=== PATIENT | female | born 1985 | race Caucasian/White ===

== ENCOUNTER 2016-05-20 15:06 | Emergency (ER) | payer BC, MEDICAID, OTHER ==
[~2016-05-20] VITALS: Ht 154.9 cm; Wt 67.0 kg
[2016-05-20 15:13] VITALS: Ht 154.9 cm; Wt 67.0 kg
[2016-05-20 19:46] LABS: URINE BLOOD (Dip) POC Negative (NEGATIVE)
[2016-05-20 20:19] LABS: BASOPHIL # 0.2 10^3/ul (0.0-0.1); BASOPHILS % 1.9 % (0.0-2.0); EOSINOPHILS # 0.1 10^3/ul (0.0-0.5); EOSINOPHILS % 0.4 % (0.0-7.0); HEMATOCRIT 40.3 % (37.0-47.0); HEMOGLOBIN 13.6 g/dl (12.0-16.0); LYMPHOCYTES # 2.6 10^3/ul (0.8-2.9); LYMPHOCYTES % 21.4 % (15.0-51.0); MEAN CORPUSCULAR HEMOGLOBIN 27.8 pg (29.0-33.0); MEAN CORPUSCULAR HGB CONC 33.8 g/dl (32.0-37.0); MEAN CORPUSCULAR VOLUME 82.3 fl (82.0-101.0); MEAN PLATELET VOLUME 8.2 fl (7.4-10.4); MONOCYTE # 0.8 10^3/ul (0.3-0.9); MONOCYTES % 6.3 % (0.0-11.0); NEUTROPHIL # 8.4 10^3/ul (1.6-7.5); PLATELET COUNT 282 10^3/UL (140-440); RED BLOOD COUNT 4.89 10^6/ul (4.20-5.40); RED CELL DISTRIBUTION WIDTH 15.5 % (11.5-14.5)
--- NOTE | 2016-05-20 20:48 | RADRPT ---
PROCEDURE: US OB. CLINICAL INDICATION: . Evaluate size and dates. TECHNIQUE: Transabdominal imaging of the pelvis was performed. Images are reviewed on a high-reso Klash PACS workstation. COMPARISON: None available FINDINGS: Single intrauterine gestation is identified. heart rate is 162 bpm. [place]-rump length = 6.64 cm. Gestational age is 13 weeks 0 days and MARCELO is 11/25/2016 by ultrasound criteria. Gestational age is 13 weeks 5 days and MARCELO is 11/20/2016 by LMP. Ovaries are not visualized. No adnexal mass or pelvic free fluid is identified. IMPRESSION: 1. Single live intrauterine with an estimated gestational age of 13 weeks 0 days by ultra sound criteria, as above. RPTAT: HDWR .Jimmy Chaudhry MD, Date Time Electronically viewed and signed by .Jimmy Chaudhry MD, on 05/20/2016 20:47 .R/
[2016-05-20 20:50] LABS: CONDITION 1
[2016-05-20 20:51] LABS: LH ANALYZER COMMENTS 1
--- NOTE | 2016-05-20 21:54 | ERD ---
ER Documentation Chief Complaint Date/Time DATE: 05/20/16 TIME: 21:48 Chief Complaint SENT BY CLINIC Pt 13 WEEKS ,NO HEART TONE HPI Patient is a 30-year-old female, , approximately 13 weeks who presents to the emergency department with concerns of no heart tones. Patient states that she saw her NUCLEAR POWERPLANT SUPERVISOR today who was unable to detect heart tones using handheld doppler device. Patient denies any abdominal pain, pelvic pain, vaginal bleeding, vaginal discharge, abdominal cramping, fever, chills, nausea, vomiting. Patient reports normal thus far. Patient is taking vitamins. ROS All systems reviewed and are negative except as per history of present illness. Allergies Allergies: Coded Allergies: No Known Allergy (Verified Allergy, Unknown, 03/02/08) PMhx/Soc Medical and Surgical Hx: pt denies Medical Hx, pt denies Surgical Hx Hx Alcohol Use: No Hx Substance Use: No Hx Tobacco Use: No Smoking Status: Never smoker Physical Exam Vitals Vital Signs Date Time Temp Pulse Resp B/P Pulse Ox O2 Delivery O2 Flow Rate FiO2 05/20/16 22:20 98.6 88 20 Room Air 05/20/16 15:13 98.6 84 18 119/68 98 Physical Exam GENERAL: Well-developed, well-nourished male. Appears in no acute distress. HEAD: Normocephalic, atraumatic. EYES: Pupils are equally reactive bilaterally. EOMs grossly intact. No conjunctival erythema. ENT: Moist mucous membranes. No uvula deviation. No kissing tonsils. NECK: Supple. No lymphadenopathy or thyromegaly. No meningismus. LUNG: Clear to auscultation bilaterally. No rhonchi, wheezing, rales or coarse breath sounds. HEART: Regular rate and rhythm. No murmurs, rubs or gallops. ABDOMEN: No scars, ecchymosis or rashes noted. Soft, nontender, and nondistended. Positive bowel sounds in all four quadrants. No rebound tenderness , no guarding. (-) McBurneys point tenderness. No CVA tenderness. BACK: No midline tenderness. EXTREMITIES: Equal pulses bilaterally. No peripheral clubbing, cyanosis or edema. No unilateral leg swelling. NEUROLOGIC: Alert and oriented. Moving all four extremities without any difficulty. Normal speech. Steady gait. SKIN: Normal color. Warm and dry. No rashes or lesions. Result Diagram: 05/20/161954 Results 24 hrs Laboratory Tests Test 05/20/16 19:45 05/20/16 19:46 05/20/16 19:55 Urine Bacteria FEW Urine Bilirubin NEGATIVE Urine Clarity CLEAR Urine Color LT. YELLOW Urine Glucose NEGATIVE% Urine Hemoglobin NEGATIVE Urine Ketones 40 Urine Leukocyte Esterase TRACE Urine Microscopic RBC 0-2/HPF Urine Microscopic WBC 0-2/HPF Urine Nitrite NEGATIVE Urine Specific [place] 1.015 Urine Squamous Epithelial Cells FEW Urine Total Protein NEGATIVE Urine Urobilinogen 0.2 E.U./dL Urine pH 6.5 Bedside Urine Blood Negative Bedside Urine Glucose (UA) Negative Bedside Urine Ketones (LAB) 2+ Bedside Urine Leukocyte Esterase (L Negative Bedside Urine Nitrite (LAB) Negative Bedside Urine Protein (LAB) Negative Bedside Urine pH (LAB) 6.5 Basophils # 0.210^3/ul Basophils % 1.9% Beta HCG, Quantitative 63870.0mIU/ml Blood Morphology Comment Eosinophils # 0.110^3/ul Eosinophils % 0.4% Hematocrit 40.3% Hemoglobin 13.6g/dl Lymphocytes # 2.610^3/ul Lymphocytes % 21.4% Mean Corpuscular Hemoglobin 27.8pg Mean Corpuscular Hemoglobin Concent 33.8g/dl Mean Corpuscular Volume 82.3fl Mean Platelet Volume 8.2fl Monocytes # 0.810^3/ul Monocytes % 6.3% Neutrophils # 8.410^3/ul Neutrophils % 70.0% Nucleated Red Blood Cells # 0.010^3/ul Nucleated Red Blood Cells % 0.0/100WBC Platelet Count 72860^3/UL Red Blood Count 4.8910^6/ul Red Cell Distribution Width 15.5% White Blood Count 12.010^3/ul Procedures/MDM ED COURSE: The patient was stable throughout ED course. I kept the patient and/or family informed of laboratory and diagnostic imaging results throughout the ED course. DIAGNOSTIC IMAGING: Read by radiologist. DIAGNOSTIC IMAGING REPORT Patient: MIKHAIL MCKNIGHT : 1985 Age: 30 Sex: F MR #: [id number] DOS: 05/20/161948 Ordering MD: FELICIANO HAM PA-C Location: [facility] Room/Bed: PROCEDURE: US OB. CLINICAL INDICATION: . Evaluate size and dates. TECHNIQUE: Transabdominal imaging of the pelvis was performed. Images are reviewed on a high-resolution PACS workstation. COMPARISON: None available FINDINGS: Single intrauterine gestation is identified. heart rate is 162 bpm. [place]-rump length = 6.64 cm. Gestational age is 13 weeks 0 days and MARCELO is 11/25/2016 by ultrasound criteria. Gestational age is 13 weeks 5 days and MARCELO is 11/20/2016 by LMP. Ovaries are not visualized. No adnexal mass or pelvic free fluid is identified. IMPRESSION: 1. Single live intrauterine with an estimated gestational age of 13 weeks 0 days by ultrasound criteria, as above. RPTAT: HDWR .Jimmy Chaudhry MD, Date Time Electronically viewed and signed by .Jimmy Chaudhry MD, MD on 05/20/2016 20: 47 .R/ CC: FELICIANO HAM PA-C MEDICAL DECISION MAKING: This is a 30-year-old t female who presents with concerns of no heart tones. Patient states that she saw her NUCLEAR POWERPLANT SUPERVISOR today who was unable to detect heart tones using hand-held doppler device. Vital signs were reviewed. Patient was afebrile. Patient was hemodynamically stable. [place] [address]. Rh factor was positive. No Rhogam was given. CBC showed no evidence of systemic infection or severe anemia. Pelvic US showed Single live intrauterine with an estimated gestational age of 13 weeks 0 days by ultrasound criteria, as above. Given these findings, the patients presentation is most consistent with normal . I have a much lower clinical concern for demise, ectopic , molar , spontaneous , incomplete , missed , placental abruption , placental previa, vasa previa, uterine rupture, anembyronic . DISCHARGE: At this time, patient is stable for discharge and outpatient management. I have instructed the patient to follow-up with her OBGYN in 1-2 days. I have instructed the patient to promptly return to the ER at any time for any new or worsening symptoms including increased pain, nausea, vomiting, continued bleeding, weakness, syncope or fever. The patient and/or family expressed understanding of and agreement with this plan. All questions were answered. Home care instructions were provided. Departure Diagnosis: Primary Impression: Weeks of gestation: 13 weeks Qualified Code: Z3A.13 - 13 weeks gestation of Condition: Stable Referrals: [facility] YOU HAVE RECEIVED A MEDICAL SCREENING EXAM AND THE RESULTS INDICATE THAT YOU DO NOT HAVE A CONDITION THAT REQUIRES URGENT TREATMENT IN THE EMERGENCY DEPARTMENT. FURTHER EVALUATION AND TREATMENT OF YOUR CONDITION CAN WAIT UNTIL YOU ARE SEEN IN YOUR DOCTORS OFFICE WITHIN THE NEXT 1-2 DAYS. IT IS YOUR RESPONSIBILITY TO MAKE AN APPOINTMENT FOR FOLOW-UP CARE. IF YOU HAVE A PRIMARY DOCTOR --you should call your primary doctor and schedule an appointment IF YOU DO NOT HAVE A PRIMARY DOCTOR YOU CAN CALL OUR PHYSICIAN REFERRAL HOTLINE AT IF YOU CAN NOT AFFORD TO SEE A PHYSICIAN YOU CAN CHOSE FROM THE FOLLOWING [facility] [address] [facility]. [facility] [address] [facility]. [facility] [address] [facility]. [facility] [address] [facility] [address] [facility]. [facility]. [address] [facility]. [facility] YOU HAVE RECEIVED A MEDICAL SCREENING EXAM AND THE RESULTS INDICATE THAT YOU DO NOT HAVE A CONDITION THAT REQUIRES URGENT TREATMENT IN THE EMERGENCY DEPARTMENT. FURTHER EVALUATION AND TREATMENT OF YOUR CONDITION CAN WAIT UNTIL YOU ARE SEEN IN YOUR DOCTORS OFFICE WITHIN THE NEXT 1-2 DAYS. IT IS YOUR RESPONSIBILITY TO MAKE AN APPOINTMENT FOR FOLOW-UP CARE. IF YOU HAVE A PRIMARY DOCTOR --you should call your primary doctor and schedule and appointment IF YOU DO NOT HAVE A PRIMARY DOCTOR YOU CAN CALL OUR PHYSICIAN REFERRAL HOTLINE AT . IF YOU CAN NOT AFFORD TO SEE A PHYSICIAN YOU CAN CHOSE FROM THE FOLLOWING [facility] INSTITUTIONS: [facility] [address] [place] [address] [facility] [address] [place] [address] [facility] [address] [place] [address] [employer]UCLE[employer]OWERPL[employer] [address] [address] [facility] [address] [place] [address] OFFICE FAX , [facility] [address] [place] [address] [address] VELAZQUEZ, [place] [address] [place] [address] [address] WISEMAN, [facility] [address] [facility], [address], [facility] [address] [address] MARTINEZ, [place] [address] [place] [address] [place] [address] [place] [address] [address] [facility] [address] - [address], [facility] [address] [address] RIOS, [facility] [address] [facility]. [address], [facility] [address] [address] LINARES, [facility] [address] [place], [place] [id number] Additional Instructions: Call your primary care doctor/OBGYN TOMORROW for an appointment during the next 1-2 days.See the doctor sooner or return here if your condition worsens before your appointment time. FELICIANO HAM PA-C May 20, 2016 21:54
[2016-05-20 22:09] LABS: ADD UMIC YES; URINE BILIRUBIN (Dip) NEGATIVE (NEGATIVE); URINE BLOOD (Dip) NEGATIVE (NEGATIVE); URINE COLOR LT. YELLOW (YELLOW); URINE GLUCOSE (Dip) NEGATIVE (NEGATIVE); URINE KETONES (Dip) 40 (NEGATIVE); URINE LEUKOCYTE ESTERASE (Dip) TRACE (NEGATIVE); URINE NITRITE (Dip) NEGATIVE (NEGATIVE); URINE TOTAL PROTEIN (Dip) NEGATIVE (NEGATIVE); URINE UROBILINOGEN (Dip) 0.2 E.U./dL (0.1-1.0)
[2016-05-20 22:20] VITALS: PULSE 88; RESP 20; TEMP 98.6
[2016-05-20 22:27] LABS: BACTERIA,URINE FEW; SQUAMOUS EPITHELIAL CELL,UR FEW; URINE RBCS 0-2 /HPF (0)
== END 2016-05-20 22:12 | disposition home or self-care (01) ==
LOC: FTE 15:06
DX: O99.89 Other specified diseases and conditions complicating pregnancy, childbirth and the puerperium (principal); R10.2 Pelvic and perineal pain; Z3A.13 13 weeks gestation of pregnancy
CPT/HCPCS: 36415; 76801; 81001; 84702; 85025; 86900; 86901; Z7502; 81003

== ENCOUNTER 2016-08-08 15:54 | Emergency (ER) | payer OTHER ==
[~2016-08-08] VITALS: Ht 160 cm; Wt 69.5 kg
[2016-08-08 16:11] VITALS: Ht 160 cm; Wt 69.5 kg
[2016-08-08] MEDS ORDERED: ACETAMINOPHEN 500 MG TAB PO STA (17:17)
[2016-08-08] MEDS ORDERED: ACET500C5 PO (17:19)
--- NOTE | 2016-08-08 17:22 | ERD ---
ER Documentation Chief Complaint Date/Time DATE: 08/08/16 TIME: 17:21 Chief Complaint CP X3 DAYS, GETS WORSE WITH ACTIVITY, 24 WKS DD12/04/16 HPI This is a 30-year-old female who presents to the emergency department today complaining of chest pain for the past 3 days. Patient states the pain is worse with movement and when she goes from laying down to sitting up. Patient states that the pain hurts when she sneezes. States it is nonradiating. States she is 24 weeks . States she has not taken any medication for the pain. Denies any calf swelling, cough, shortness of breath. ROS All systems reviewed and are negative except as per history of present illness. Medications Home Meds Active Scripts Acetaminophen* (Tylophen*) 500 Mg Capsule, 1 CAP PO Q6H Y for PAIN AND OR ELEVATED TEMP, #30 CAP Prov:ENZO GOETZ PA-C 08/08/16 Allergies Allergies: Coded Allergies: No Known Allergy (Verified , 08/08/16) PMhx/Soc Medical and Surgical Hx: pt denies Medical Hx, pt denies Surgical Hx Hx Alcohol Use: No Hx Substance Use: No Hx Tobacco Use: No Smoking Status: Never smoker Physical Exam Vitals Vital Signs Date Time Temp Pulse Resp B/P Pulse Ox O2 Delivery O2 Flow Rate FiO2 08/08/16 16:11 98.7 122 18 137/70 98 Physical Exam Const: No acute distress Head: Atraumatic Eyes: Normal Conjunctiva ENT: Normal External Ears, Nose and Mouth. Neck: Full range of motion..~ No meningismus. Resp: Clear to auscultation bilaterally. No absent breath sounds. No wheezing. Tenderness to palpation sternum with compression. Pain worse with trunk rotation to the right and left. Cardio: Tachycardia, regular rhythm, no murmurs Abd: Soft, non tender, non distended. Normal bowel sounds. No right upper quadrant pain. No epigastric pain. Skin: No petechiae or rashes Back: No midline or flank tenderness Ext: No cyanosis, or edema. No erythema or warmth. No calf tenderness or swelling Neur: Awake and alert Psych: Normal Mood and Affect Results 24 hrs Current Medications Medications (Trade) Dose Ordered Sig/Tiffanie Route PRN Reason Start Time Stop Time Status Last Admin Dose Admin Acetaminophen (Tylenol Tab) 500 mg ONCE STAT PO 08/08/16 17:17 08/08/16 17:18 DC 08/08/16 17:21 Procedures/MDM This a 30-year-old female who presents to the emergency department today complaining of chest pain for the past 3 days. Patient is 24 weeks . I did obtain an EKG EKG read and interpreted by Ray rate [address] elevation. No QT prolongation. Sinus tachycardia. Low suspicion for acute NV, PE, pericarditis Physical exam patient had substernal chest pain that was nonradiating. It was reproducible with trunk twisting to the right and left. It was tender with palpation and compression. Patient reported pain with going from laying to sitting as well as sneezing. Patient is afebrile and otherwise well-appearing. She does not have a cough. Do not feel the patient requires a chest x-ray. Low suspicion for pneumonia, PE , abscess, pleural effusion, pneumothorax. Patient symptoms at this time is consistent with costochondritis. Patient was tachycardic however her oxygen saturation is 98%. She has no calf swelling and no calf tenderness. She denies any prolonged travel. Low suspicion for DVT or PE and I do not feel the patient requires further workup at this time. Patient was given Tylenol here in the emergency department. I will give her prescription for home as patient had not taken any medication for the pain. Patient was instructed to return for any shortness of breath, increased pain, difficulty breathing, calf tenderness or swelling. I discussed the patient with Dr. Lombardi and he is in agreement with the plan. Departure Diagnosis: Primary Impression: Chest pain Chest pain type: unspecified Qualified Code: R07.9 - Chest pain, unspecified type Condition: Fair Patient Instructions: Costochondritis Referrals: [facility] (PCP) Additional Instructions: Call your primary care doctor TOMORROW for an appointment during the next 1-2 days.See the doctor sooner or return here if your condition worsens before your appointment time. Take Tylenol for pain Return for any worsening of symptoms, calf swelling, shortness of breath, cough ENZO GOETZ PA-C Aug 08, 2016 17:21
== END 2016-08-08 17:44 | disposition home or self-care (01) ==
LOC: FTE 15:54
DX: R07.9 Chest pain, unspecified (principal)
CPT/HCPCS: 93005; Z7502; Z7610

== ENCOUNTER 2016-11-07 17:21 | Inpatient (IN) | payer OTHER ==
[~2016-11-07] VITALS: Ht 154.9 cm; Wt 76.5 kg
[~2016-11-07 17:21] MED LIST: ACET500C5 PO
--- NOTE | 2016-11-07 18:08 | RADRPT ---
PROCEDURE: OB ultrasound for biophysical profile CLINICAL INDICATION: Biophysical profile. . TECHNIQUE: Multiple sonographic images of the pelvis were obtained. Transabdominal views are obta ined. COMPARISON: 11/07/2016 FINDINGS: Single intrauterine gestation. Presentation: Cephalic. Placenta: Anterior. No evidence of placental abruption. No evidence of placenta previa. breathing movement = 2/2 tone = 2/2 motion = 2/2 IJEOMA = 2/2 IJEOMA = 11.8 cm heart rate: 132 beats per minute IMPRESSION: Single intrauterine gestation. Biophysical profile 12/19 RPTAT: AADD .Paolo Tuttle MD, MD Date Time Electronically viewed and signed by .Paolo Tuttle MD, on 11/07/2016 18:08 .B/
--- NOTE | 2016-11-07 19:11 | CONS ---
Date/Time of Note Date/Time of Note DATE: 11/07/16 TIME: 19:05 Consultation Date/Type/Reason Admit Date/Time November 07, 2016 OB triage consult Reason for Consultation This patient is a 30 years old 5 para 3 1 2 over deliveries by spontaneous vaginal and one section. Her estimated date of confinement is 11/22/2016 which makes her 37 weeks and 6 days . she was referred from high risk T clinic to be evaluated due to low IJEOMA On examination she is a well-developed well-nourished lady near term with occasional contraction Her general vital signs is normal with blood pressure of 111/60, pulse rate 87, respiration 19, and temperature 98.2 On pelvic examination the cervix was closed thick and high, however she did continue having contractions Constitutional: No chills, No diaphoresis, No disoriented, No febrile, No improved, No no complaints, No other, No poor po, No requiring IVF, No requiring O2 Eyes: No discharge, No no complaints, No other, No pain, No redness, No visual change ENT: No bleeding, No congestion, No discharge, No dysphagia, No no complaints, No other, No pain, No sore throat Respiratory: No cough, No no complaints, No other, No pain, No pleuritic pain, No shortness of breath, No sputum, No wheezing Cardiovascular: No chest pain, No edema, No lightheadedness, No no complaints, No orthopenea, No other, No palpitations, No paroxysmal nocturnal dyspnea Gastrointestinal: No blood, No constipation, No decreased appetite, No diarrhea , No flatus, No nausea, No no complaints, No other, No pain, No passing stool, No vomiting Genitourinary: other (As I mentioned on pelvic examination the cervix was closed thick and Shiela no evidence of rupture of membrane no vaginal bleeding), No bleeding, No discharge, No dysuria, No flank pain, No hematuria, No no complaints Skin: other, No bruising, No erythema, No laceration, No no complaints, No pruritis, No rash, No skin lesions Neurologic: other (Knee-jerk reflexes 1+), No confusion, No dizziness, No focal-weakness, No headache, No no complaints , No seizure, No syncope Endocrine: No dry skin, No no complaints, No other, No polydypsia, No polyuria , No temp intolerance Additional Comments Patient continued to have contractions As I mentioned her IJEOMA was 11.8 biophysical profile was 88 Due to continuation of contractions we will keep her for about 2 hours and will repeat the pelvic examination. If she is in labor we will keep her in labor other than that we will discharge her home to be followed in the clinic and return when she is in labor ABIGAIL WISEMAN MD Nov 07, 2016 19:10
[2016-11-07] MEDS ORDERED: LACTATED RINGER'S 1,000 ML IV ONE (22:00)
[2016-11-07 22:04] VITALS: Ht 154.9 cm; Wt 76.5 kg
[2016-11-07 23:44] LABS: ADD SCAN DIFF NO
[2016-11-07 23:45] LABS: BASOPHILS % 0.3 % (0.0-2.0); EOSINOPHILS # 0.1 10^3/ul (0.0-0.5); EOSINOPHILS % 0.6 % (0.0-7.0); HEMATOCRIT 36.2 % (37.0-47.0); HEMOGLOBIN 11.9 g/dl (12.0-16.0); LYMPHOCYTES # 2.5 10^3/ul (0.8-2.9); LYMPHOCYTES % 21.4 % (15.0-51.0); MEAN CORPUSCULAR HEMOGLOBIN 28.1 pg (29.0-33.0); MEAN CORPUSCULAR HGB CONC 32.9 g/dl (32.0-37.0); MEAN CORPUSCULAR VOLUME 85.4 fl (82.0-101.0); MEAN PLATELET VOLUME 10.9 fl (7.4-10.4); MONOCYTE # 1.1 10^3/ul (0.3-0.9); MONOCYTES % 9.5 % (0.0-11.0); NEUTROPHIL # 7.9 10^3/ul (1.6-7.5); NEUTROPHILS % 66.8 % (39.0-77.0); PLATELET COUNT 226 10^3/UL (140-415); RED BLOOD COUNT 4.24 10^6/ul (4.20-5.40); RED CELL DISTRIBUTION WIDTH 14.6 % (11.5-14.5); WHITE BLOOD COUNT 11.8 10^3/ul (4.8-10.8)
[2016-11-08] MEDS ORDERED: CARBOPROST 250 MCG INJ IM PRN
[2016-11-08] MEDS ORDERED: METHYLERGONOVINE 0.2 MG INJ IM PRN
[2016-11-08] MEDS ORDERED: MISOPROSTOL 200 MCG TAB PR PRN
[2016-11-08] MEDS ORDERED: CEFAZOLIN 2 GM/50 ML (PMX) 50 ML IV SCH
[2016-11-08] MEDS ORDERED: CITRIC ACID/SODIUM CITRATE 15 ML CUP PO ONE
[2016-11-08] MEDS ORDERED: OXYTOCIN 30 UNITS/LR 500 ML IV PRN
[2016-11-08 00:02] VITALS: BP 114/57; PULSE 79; RESP 18
[2016-11-08 00:22] LABS: INR 0.99; PROTIME 13.1 Sec (12.2-14.2)
[2016-11-08 00:23] LABS: PARTIAL THROMBOPLASTIN TIME 29.7 Sec (25.0-35.0)
[2016-11-08] MEDS ORDERED: morphine SULFATE/PF (10 MG/10 ML) INJ ONE (00:25)
[2016-11-08] MEDS ORDERED: PHENYLephrine (100 MCG/ML) 5ML SYG ONE (00:26)
[2016-11-08] MEDS ORDERED: EPHEDrine SULFATE 50 MG/5 ML SYG ONE (00:52)
[2016-11-08] MEDS ORDERED: HYDROmorphONE (0.2 MG/ML) 10ML SYG IV PRN ×3 (01:00)
[2016-11-08] MEDS ORDERED: HYDROmorphONE 1 MG/ML SYG IV PRN ×2 (01:00)
[2016-11-08] MEDS ORDERED: DIPHENHYDRAMINE 50 MG INJ IV PRN ×2 (01:00)
[2016-11-08] MEDS ORDERED: KETOROLAC 30 MG INJ IV ONE (01:00)
[2016-11-08] MEDS ORDERED: METOCLOPRAMIDE 10 MG INJ IV PRN (01:00)
[2016-11-08] MEDS ORDERED: FENTAnyl 50 MCG/ML VIAL IV PRN (01:00)
[2016-11-08] MEDS ORDERED: NALOXONE (0.4 MG/ML) INJ IV PRN (01:00)
[2016-11-08] MEDS ORDERED: PROCHLORPERAZINE 10 MG INJ IV PRN (01:00)
[2016-11-08] MEDS ORDERED: MEPERIDINE 25 MG INJ IV PRN (01:00)
[2016-11-08] MEDS ORDERED: ONDANSETRON 4 MG INJ IV PRN ×2 (01:00)
[2016-11-08] MEDS ORDERED: FENTAnyl 50 MCG/ML VIAL ONE ×4 (01:20→01:54)
[2016-11-08] MEDS: OXYTOCIN 30 UNITS/LR 500 ML IV SCH ×2 (02:14→06:20)
--- NOTE | 2016-11-08 02:33 | HP ---
Date/Time of Note Date/Time of Note DATE: 11/08/16 TIME: 02:16 OB - History Hx of Present Free Text/Dictation 30 y.o A1(sab) who had x2 X1 C/S at 38weeks who was sent from antepartum test room for further evaluation low IJEOMA EFM shows UC 2-5 min with pain level 6/10 membrane intact despite of IV hydration patient was c/o labor pain , repeat c/s and btl was prepared, during this ,had A1DM GBS pos informed consent was signed after explained risks from anesthesia and surgical procedure from minor to serious. Chief Complaint: uterine contractions q2-5min Estimated Due Date: Nov 22, 2016 : 5 Para: 3 Spontaneous : 1 Therapeutic : 0 Care: Good Care Ultrasounds: Normal mid trimester US Obstetrical Complications: Gestational Diabetes Medical Complications: None Past Family/Social History * Past Medical, Surgical, Family and Obstetric Histories reviewed from chart. Blood Type: A+ Rubella: immune RPR/VDRL: Negative GBS Status: Positive HBsAG: Negative OB Admission Exam Vital Signs Vital Signs Vital Signs Date Time Temp Pulse Resp B/P Pulse Ox O2 Delivery O2 Flow Rate FiO2 11/08/16 00:02 98.8 79 18 114/57 Room Air Physical Exam HEENT: WNL Heart: Rhythm Normal Lungs: Clear, Equal Abdomen: WNL Extremities: Normal Reflexes: Normal Cervical Dilatation: None Effacement: 0% Station: -3 Membranes: Intact Amniotic Fluid: Unevaluable Heart Rate: 120's Accelerations: Accelerations Present Decelerations: No Decelerations Varibility: Moderate Contractions on Admission: < 5 Minutes Apart Intensity: Moderate Last 72 hours Lab Results CBC & BMP 11/07/16 22:00 OB Assessment/Plan Reason for admission: other Other Assessment: IUP 38weeks with previous c/s in labor Plan: Section, Other (bilaterall tubal sterilization) TIM DEL REAL MD Nov 08, 2016 02:28
--- NOTE | 2016-11-08 03:14 | OPR ---
Operative Report Planned Procedure Procedure date Nov 08, 2016 Procedure(s) repeat low transverse section and bilateral partial salphingectomy Performed by: TIM DEL REAL MD Assisting provider: ABIGAIL WISEMAN MD Anesthesiologist: VIJI PERDOMO Pre-procedure diagnosis IUP 38w with previous section in labor A1DM multiparity desire to have tubal sterilization Anesthesia Type: spinal Procedure Description Under satisfactory [spinal ] anesthesia, the patient was prepped and draped and placed in a supine position, tilted to the left. Pfannenstiel incision was made , carried through the subcutaneous tissue. Bleeders brought under control with electrocautery. Fascia incised to the length of the incision. Rectus muscles from the fascia, divided midline. Peritoneum exposed, entered through a transverse incision. Exploration of abdomen revealed gravid uterus. . Transverse incision was made in the lower segment of the uterus. Amniotic sac ruptured. clear [] amniotic fluid noted. normal female infant was born from lt occiput transverse position,, [] Nasal oropharyngeal suction was performed. The baby was handed to the team for immediate attention.after delayed cord clamping done. cord blood was obtained. The placenta was delivered manually intact. Uterine cavity was cleaned with wet sponge and drainage established.after uterus was exteriolized. Uterus closed in 2 layers using []0 ch gut in continuous fashion.bleeding controlled properly , rt flollopian was identified and distal portion was clamped cut ,ligture with 0plain gut doubly done same procedure done on lt tube, Peritoneal cavity irrigated with warm saline. Sponge, needle and instrument count reported to be correct. Abdominal peritoneum closed with []0ch gut continuously. Rectus muscle approximated with [0ch gut]. Fascia closed with [#1 vicryl in x2 segment. subcut approximated with 0 plain gut], and skin closed with insorb. Estimated blood loss 500 []mL. Urine bag contained [350]mL of urine patient was sent to [facility] in staaable condition Post-Procedure Post-procedure diagnosis same as above delivered normal female Findings: Live Baby [girl ], Apgars [8] and [9], weight [], position LOT[], [vertex ] presentation []cord. Specimen removed: Yes Specimen description bilaterl distal portion of follopian tube Complications: None Pt Condition post procedure: stable Disposition: other (RR) Physician Certification I, the undersigned physician, hereby certify that I have discussed the procedure described in this consent form with this patient (or the patient's legal sales representative aircraft), including: * The risk and benefits of the procedure; * Any adverse reactions that may reasonably be expected to occur; * Any alternative efficacious methods of treatment which may be medically viable ; * The potential problems that may occur during recuperation; * Potential for blood transfusion and associated risks/benefits; and * Any research or economic interest I may have regarding this treatment. I further certify that the patient/legally responsible person was encouraged to ask question and that all questions were answered. TIM DEL REAL MD Nov 08, 2016 03:12
[2016-11-08 04:40] VITALS: BP 103/60; PULSE 69; RESP 19
[2016-11-08] MEDS ORDERED: OXYTOCIN 30 UNITS/LR 500 ML BAG IV ONE (07:00)
[2016-11-08 08:40] VITALS: BP 109/55; PULSE 70; RESP 16
--- NOTE | 2016-11-08 09:09 | CONS ---
Date/Time of Note Date/Time of Note DATE: 11/08/16 TIME: 09:09 Consultation Date/Type/Reason Admit Date/Time Nov 07, 2016 at 23:25 Initial Consult Date 11/08/16 Type of Consultation: Anesthesiology Reason for Consultation Follow up 24 HR Interval Summary Free Text/Dictation Pt seen and examined at bedside is POD#1 s/p C/S. She states her pain is minimal. No N/V/D/C/HOLLIS/Numbness in extremities. Pt received a Duramorph spinal for post-op pain control which is working adequately. Will continue to follow. Constitutional: improved, no complaints Exam/Review of Systems Vital Signs Vitals Vital Signs Date Time Temp Pulse Resp B/P Pulse Ox O2 Delivery O2 Flow Rate FiO2 11/08/16 08:56 96 21 11/08/16 04:40 98.1 69 19 103/60 Room Air Intake and Output 11/07/16 11/07/16 11/08/16 15:00 23:00 07:00 Intake Total 3500 ml Output Total 1128 ml Balance 2372 ml Results Result Diagram: 11/07/16 2200 Results 24 hrs Laboratory Tests Test 11/07/16 22:00 White Blood Count 11.8 H Red Blood Count 4.24 Hemoglobin 11.9 L Hematocrit 36.2 L Mean Corpuscular Volume 85.4 Mean Corpuscular Hemoglobin 28.1 L Mean Corpuscular Hemoglobin Concent 32.9 Red Cell Distribution Width 14.6 H Platelet Count 226 Mean Platelet Volume 10.9 #H Neutrophils % 66.8 Lymphocytes % 21.4 Monocytes % 9.5 Eosinophils % 0.6 Basophils % 0.3 Nucleated Red Blood Cells % 0.0 Neutrophils # 7.9 H Lymphocytes # 2.5 Monocytes # 1.1 H Eosinophils # 0.1 Basophils # 0.0 Nucleated Red Blood Cells # 0.0 Prothrombin Time 13.1 Prothrombin Time Ratio 1.0 INR International Normalized Ratio 0.99 Activated Partial Thromboplast Time 29.7 Hepatitis B Surface Antigen NEGATIVE Medications Medications Current Medications Cefazolin Sodium/ Dextrose 50 ml @ 100 mls/hr ONCE IV ; Start 11/08/16 at 00:00 Oxytocin/Lactated Ringer's 500 ml @ 125 mls/hr ONCE IV Last administered on t 06:20; Admin Dose 125 MLS/HR; Start 11/08/16 at 00:00 Oxytocin/Lactated Ringer's 500 ml @ 0 mls/hr ONCE PRN IV For Hemorrhage Management; Start 11/08/16 at 00:00 Methylergonovine Maleate (Methergine) 0.2 mg ONCE PRN IM VAGINAL BLEEDING; Start 11/08/16 at 00:00 Carboprost Tromethamine (Hemabate) 250 mcg ONCE PRN IM VAGINAL BLEEDING; Start 11/08/16 at 00:00 Misoprostol (Cytotec) 1,000 mcg ONCE PRN [place] VAGINAL BLEEDING; Start 11/08/16 at 00:00 Naloxone HCl (Narcan) 0.1 mg Q2M PRN IV FOR RESP RATE 8 OR LESS; Start at 01:00; Stop 11/09/16 at 00:59 Ketorolac Tromethamine (Toradol) 30 mg Q6H PRN IV PAIN; Start 11/08/16 at 01:00 ; Stop 11/09/16 at 00:59 Hydromorphone HCl (Dilaudid) 0.4 mg Q3H PRN IV PAIN LEVEL 6-10; Start 11/08/16 at 01:00; Stop 11/09/16 at 00:59 Diphenhydramine HCl (Benadryl) 25 mg Q6H PRN IV ITCHING; Start 11/08/16 at 01: 00; Stop 11/09/16 at 00:59 Ondansetron HCl (Zofran Inj) 4 mg Q6H PRN IV NAUSEA AND/OR VOMITING Last administered on 11/08/16t 08:35; Admin Dose 4 MG; Start 11/08/16 at 01:00; Stop 11/09/16 at 00:59 Prochlorperazine (Compazine Inj) 10 mg ONCE PRN IV NAUSEA AND/OR VOMITING; Start 11/08/16 at 01:00; Stop 11/09/16 at 00:59 VIJI PERDOMO Nov 08, 2016 09:09
[2016-11-08] MEDS: LACTATED RINGER'S 1,000 ML IV SCH ×2 (10:47→18:35)
[2016-11-08 12:00] VITALS: BP 106/48; RESP 16
[2016-11-08] MEDS: KETOROLAC 30 MG INJ IV PRN ×2 (12:49→23:32)
[2016-11-08 16:10] VITALS: BP 118/71; PULSE 93; RESP 17
[2016-11-08 19:45] VITALS: BP 110/58; PULSE 86; RESP 18
[2016-11-09 00:02] VITALS: BP 106/59; PULSE 75; RESP 18
[2016-11-09] MEDS: LACTATED RINGER'S 1,000 ML IV SCH ×5 (03:00→20:14)
[2016-11-09 03:52] VITALS: BP 105/57; PULSE 77; RESP 19
[2016-11-09] MEDS ORDERED: LANOLIN 7 GM TUBE TOP PRN (06:00)
[2016-11-09] MEDS: HYDROCODONE/APAP (5/325) TAB PO PRN ×3 (06:17→18:20)
[2016-11-09 08:00] VITALS: BP 97/47; PULSE 71
[2016-11-09 08:55] LABS: ADD SCAN DIFF NO
[2016-11-09 09:01] LABS: ABNORMAL IP MESSAGE 1; BASOPHILS % 0.2 % (0.0-2.0); EOSINOPHILS % 0.3 % (0.0-7.0); HEMATOCRIT 31.7 % (37.0-47.0); HEMOGLOBIN 10.2 g/dl (12.0-16.0); LYMPHOCYTES % 13.7 % (15.0-51.0); MEAN CORPUSCULAR HEMOGLOBIN 27.4 pg (29.0-33.0); MEAN CORPUSCULAR HGB CONC 32.2 g/dl (32.0-37.0); MEAN CORPUSCULAR VOLUME 85.2 fl (82.0-101.0); MEAN PLATELET VOLUME 11.1 fl (7.4-10.4); MONOCYTE # 1.8 10^3/ul (0.3-0.9); MONOCYTES % 12.4 % (0.0-11.0); NEUTROPHIL # 10.5 10^3/ul (1.6-7.5); NEUTROPHILS % 72.4 % (39.0-77.0); PLATELET COUNT 218 10^3/UL (140-415); RED BLOOD COUNT 3.72 10^6/ul (4.20-5.40); RED CELL DISTRIBUTION WIDTH 14.8 % (11.5-14.5); WHITE BLOOD COUNT 14.5 10^3/ul (4.8-10.8)
--- NOTE | 2016-11-09 12:08 | PN ---
Date/Time of Note Date/Time of Note DATE: 11/09/16 TIME: 12:06 OB Subjective Subjective Subjective Post day 1 Afebrile, vital signs stable abdomen soft bowel sounds present but weak incision dry lochia moderate ambulation encouraged Laboratory Tests Test 11/09/16 07:21 White Blood Count 14.510^3/ul Red Blood Count 3.7210^6/ul Hemoglobin 10.2g/dl Hematocrit 31.7% Mean Corpuscular Volume 85.2fl Mean Corpuscular Hemoglobin 27.4pg Mean Corpuscular Hemoglobin Concent 32.2g/dl Red Cell Distribution Width 14.8% Platelet Count 79027^3/UL Mean Platelet Volume 11.1fl Neutrophils % 72.4% Lymphocytes % 13.7% Monocytes % 12.4% Eosinophils % 0.3% Basophils % 0.2% Nucleated Red Blood Cells % 0.0/100WBC Neutrophils # 10.510^3/ul Lymphocytes # 2.010^3/ul Monocytes # 1.810^3/ul Eosinophils # 0.010^3/ul Basophils # 0.010^3/ul Nucleated Red Blood Cells # 0.010^3/ul Current Medications Medications (Trade) Dose Ordered Sig/Tiffanie Route PRN Reason Start Time Stop Time Status Last Admin Dose Admin Lactated Ringer's 1,000 ml @ 1,000 mls/hr Q1H ONCE IV 11/07/16 22:00 11/07/16 22:59 DC 11/07/16 21:58 Cefazolin Sodium/ Dextrose 50 ml @ 100 mls/hr ONCE IV 11/08/16 00:00 Oxytocin/Lactated Ringer's 500 ml @ 125 mls/hr ONCE IV 11/08/16 00:00 11/08/16 06:20 Oxytocin/Lactated Ringer's 500 ml @ 0 mls/hr ONCE PRN IV For Hemorrhage Management 11/08/16 00:00 Methylergonovine Maleate (Methergine) 0.2 mg ONCE PRN IM VAGINAL BLEEDING 11/08/16 00:00 Carboprost Tromethamine (Hemabate) 250 mcg ONCE PRN IM VAGINAL BLEEDING 11/08/16 00:00 Misoprostol (Cytotec) 1,000 mcg ONCE PRN [place] VAGINAL BLEEDING 11/08/16 00:00 Citric Acid/ Sodium Citrate (Bicitra) 30 ml ONCE ONCE PO 11/08/16 00:00 11/08/16 00:01 DC 11/08/16 00:05 Morphine Sulfate (Duramorph) 10 mg STK-MED ONCE .ROUTE 11/08/16 00:25 11/08/16 00:26 DC Phenylephrine HCl (Elias-Synephrine Inj Syg) 500 mcg STK-MED ONCE .ROUTE 11/08/16 00:26 11/08/16 00:27 DC Ephedrine Sulfate 50 mg STK-MED ONCE .ROUTE 11/08/16 00:52 11/08/16 00:53 DC Naloxone HCl (Narcan) 0.1 mg Q2M PRN IV FOR RESP RATE 8 OR LESS 11/08/16 01:00 11/09/16 00:59 DC Ketorolac Tromethamine (Toradol) 30 mg Q6H PRN IV PAIN 11/08/16 01:00 11/09/16 00:59 DC 11/08/16 23:32 Hydromorphone HCl (Dilaudid) 0.2 mg Q3H PRN IV PAIN LEVEL 1-5 11/08/16 01:00 11/08/16 05:00 DC Hydromorphone HCl (Dilaudid) 0.4 mg Q3H PRN IV PAIN LEVEL 6-10 11/08/16 01:00 11/09/16 00:59 DC Diphenhydramine HCl (Benadryl) 25 mg Q6H PRN IV ITCHING 11/08/16 01:00 11/09/16 00:59 DC 11/08/16 21:03 Ondansetron HCl (Zofran Inj) 4 mg Q6H PRN IV NAUSEA AND/OR VOMITING 11/08/16 01:00 11/09/16 00:59 DC 11/08/16 08:35 Prochlorperazine (Compazine Inj) 10 mg ONCE PRN IV NAUSEA AND/OR VOMITING 11/08/16 01:00 11/09/16 00:59 DC Hydromorphone HCl (Dilaudid (Rec)) 0.2 mg PACU ORDER PRN IV MILD PAIN LEVEL 1-3 11/08/16 01:00 11/08/16 05:00 DC Hydromorphone HCl (Dilaudid (Rec)) 0.4 mg PACU ORDER PRN IV MODERATE PAIN LEVEL 4-6 11/08/16 01:00 11/08/16 05:00 DC Hydromorphone HCl (Dilaudid (Rec)) 0.6 mg PACU ORDER PRN IV SEVERE PAIN LEVEL 7-10 11/08/16 01:00 11/08/16 05:00 DC Fentanyl (Sublimaze) 25 mcg PACU ORDER PRN IV MILD PAIN LEVEL 1-3 11/08/16 01:00 11/08/16 05:00 DC Ketorolac Tromethamine (Toradol) 30 mg PACU ORDER ONCE IV 11/08/16 01:00 11/08/16 01:04 DC 11/08/16 02:27 Ondansetron HCl (Zofran Inj) 4 mg PACU ORDER PRN IV NAUSEA AND/OR VOMITING 11/08/16 01:00 11/08/16 05:00 DC Metoclopramide HCl (Reglan) 10 mg PACU ORDER PRN IV NAUSEA AND/OR VOMITING 11/08/16 01:00 11/08/16 05:00 DC Meperidine HCl (Demerol) 25 mg PACU ORDER PRN IV POST-OP RIGORS 11/08/16 01:00 11/08/16 05:00 DC Diphenhydramine HCl (Benadryl) 25 mg PACU ORDER PRN IV PRURITUS 11/08/16 01:00 11/08/16 05:00 DC Fentanyl (Sublimaze) 100 mcg STK-MED ONCE .ROUTE 11/08/16 01:20 11/08/16 01:21 DC Fentanyl (Sublimaze) 100 mcg STK-MED ONCE .ROUTE 11/08/16 01:22 11/08/16 01:23 DC Fentanyl (Sublimaze) 100 mcg STK-MED ONCE .ROUTE 11/08/16 01:45 11/08/16 01:46 DC Fentanyl 100 mcg 100 mcg STK-MED ONCE .ROUTE 11/08/16 01:54 11/08/16 01:55 DC Lactated Ringer's (Lr) 1,000 ml @ 125 mls/hr Q8H IV 11/08/16 11:00 11/08/16 18:35 Senna (Senokot) 1 tab BID PRN PO CONSTIPATION 11/09/16 06:00 Ibuprofen (Motrin) 600 mg Q6H PRN PO PAIN LEVEL 1-5 11/09/16 06:00 Lanolin (Lli-O-Vgvrgy) 1 applic BEDSIDE PRN TOP BEDSIDE FOR ABHI TO NIPPLES 11/09/16 06:00 Acetaminophen/ Hydrocodone Bitart ([place] (5/325)) 1 tab Q4H PRN PO PAIN LEVEL 1-5 11/09/16 06:00 11/09/16 11:39 Acetaminophen/ Hydrocodone Bitart ([place] (5/325)) 2 tab Q4H PRN PO PAIN LEVEL 6-10 11/09/16 06:00 11/09/16 06:17 DENISA AQUINO MD Nov 09, 2016 12:07
[2016-11-09 16:00] VITALS: BP 95/59; PULSE 80; RESP 18
--- NOTE | 2016-11-09 19:59 | NSTRPT ---
NST Information Datetime Report Generated by CPN: 11/09/2016 19:58 Datetime: 11/07/2016 15:20 NST Information EGA: 37.6 Test Number: 2 Time on Monitor: 11/07/2016 15:31 Time off Monitor: 11/07/2016 16:48 NST Duration (Min): 77 Reason for NST: Diabetes Mellitus; Other Reason for NST Other: A1DM Test and Monitor Explained: Monitor Explained; Test Explained; Verbalized Understanding Pulse: 89 Resp: 16 SBP: 110 DBP: 64 Test Evaluation NST Interventions: Reposition Patient Patient States Movement: Present Contraction Frequency: NONE FHR Baseline : 150 Variability: Moderate 6-25bpm Accelerations: 15X15 Decelerations: Variable FHR Category: Category II NST Results: Non-Reactive Comments: To u/s, IJEOMA 17.4cm, cephalic FBS 79 Dr. Gonzales reviewed strip and recommends pt go to OB Triage now for extended monitorin g. Dr. Hood called and informed of Dr. Gonzales's recommendations. Orders received from Dr. Erwin to send pt to OB Triage now for extended monitoring. POC discussed with patient, discussed kick counts, follow-up NST/IJEOMA appointment given. Pt verbalizes understanding and denies questions. 1700-Pt to OB Triage now. Electronically Signed By E-Signature: with User ID: [id number] Datetime: 11/03/2016 14:47 NST Information EGA: 37.2 Datetime: 11/03/2016 14:24 NST Duration (Min): 51
[2016-11-09] MEDS: OXYTOCIN 30 UNITS/LR 500 ML IV SCH ×5 (20:14→21:17)
[2016-11-09] MEDS: IBUPROFEN 600 MG TAB PO PRN (20:16)
[2016-11-09] MEDS: SENNA TAB PO PRN (20:16)
[2016-11-09 20:30] VITALS: BP 109/69; PULSE 75; RESP 18
[2016-11-10 04:00] VITALS: BP 93/55; PULSE 71; RESP 18
[2016-11-10] MEDS: HYDROCODONE/APAP (5/325) TAB PO PRN ×3 (06:09→21:33)
[2016-11-10 07:30] VITALS: BP 113/62; PULSE 73; RESP 16
[2016-11-10] MEDS: SENNA TAB PO PRN (09:16)
[2016-11-10 16:00] VITALS: BP 113/60; PULSE 83; RESP 16
--- NOTE | 2016-11-10 16:16 | PN ---
Date/Time of Note Date/Time of Note DATE: 11/10/16 TIME: 16:15 OB Subjective Subjective Subjective Post day 2 Afebrile vital signs are stable abdomen soft incision dry healing well bowel sounds. Patient had normal bowel movement plan of a.m. discharge discussed EDNISA AQUINO MD Nov 10, 2016 16:16
[2016-11-10 20:00] VITALS: BP 124/72; PULSE 80; RESP 18
[2016-11-11] MEDS: IBUPROFEN 600 MG TAB PO PRN ×2 (05:12→14:25)
[2016-11-11 05:19] VITALS: BP 113/63; PULSE 59; RESP 18
[2016-11-11 08:00] VITALS: BP 100/55; PULSE 63; RESP 17
--- NOTE | 2016-11-11 13:31 | PD.PPDC ---
[employer] Discharge Instruction Condition Patient Condition: Good Diet Diet: Resume Regular Diet Activity/Restrictions Activity: Normal Activity May Shower Restrictions: No Exercising No Lifting No Driving No Sexual Activity Nothing in the Vagina No [place] No Tampons, douche Wound/Drain Care Instructions Wound/Drain Care Instructions: Remove Steri Strips in 1 week Follow-up Follow-up with Physician: 4, Day/Days Provider Information: Appointment clinic in 4 days to discontinue [facility] at [facility] Return to clinic for [employer] Instructions: Fever greater than 101 Chills Worsening abdominal pain Excessive Vaginal Bleeding More than 2 pads per hour Unable to tolerate diet OB Instructions: Breast Tenderness Depression Blurried Vision Headache Surgical Instructions: Incisional Drainage Incisional Redness DENISA AQUINO MD Nov 11, 2016 13:31
--- NOTE | 2016-11-11 13:35 | DS ---
Date/Time of Note Date/Time of Note DATE: 11/11/16 TIME: 13:33 Discharge Summary Admission/Discharge Info Admit Date/Time Nov 07, 2016 at 23:25 Discharge Date/Time November 11, 2016 at 1330 Discharge Diagnosis Post repeat bilateral tubal ligation Patient Condition: Good Procedures Repeat bilateral tubal ligation Hx of Present Illness Term history of previous section request for bilateral tubal ligation Hospital Course Satisfactory uneventful Home Meds Active Scripts Acetaminophen* (Tylophen*) 500 Mg Capsule, 1 CAP PO Q6H Y for PAIN AND OR ELEVATED TEMP, #30 CAP Prov:ENZO GOETZ PA-C 08/08/16 Follow-up Plan Appointment clinic in 1 week for post check Primary Care Provider [facility] Time spent on discharge: < 30 minutes DENISA AQUINO MD Nov 11, 2016 13:35
== END 2016-11-11 14:55 | disposition home or self-care (01) | DRG 765 ==
LOC: L-D 17:21 → OBT 17:21 → L-D 23:25 → OBT 23:25 → L-D 11-08 00:16 → PP1 11-08 04:27
PROVIDERS: ADMIT Obstetrics & Gynecology; ATTEND Obstetrics & Gynecology
PROC: 0UL70ZZ Occlusion of Bilateral Fallopian Tubes, Open Approach (ICD-10-PCS; 2016-11-08)
PROC: 10D00Z1 Extraction of Products of Conception, Low, Open Approach (ICD-10-PCS; principal; 2016-11-08 00:15)
DX: O34.211 Maternal care for low transverse scar from previous cesarean delivery (principal); O41.8X30 Other specified disorders of amniotic fluid and membranes, third trimester, not applicable or unspecified; Z3A.38 38 weeks gestation of pregnancy; Z37.0 Single live birth; O24.420 Gestational diabetes mellitus in childbirth, diet controlled; Z30.2 Encounter for sterilization
CPT/HCPCS: 36415; 76818; 85025; 85610; 85730; 86592; 86850; 86900; 86901; 87340; 88302; 94760; 96360; 96361; 99464; G0463; J0690; J1200; J1885; J2210; J2274; J2370; J2405; J2590; J3010; J7120